=== PATIENT | female | born 1965 | race Caucasian/White ===

== ENCOUNTER 2021-03-11 17:06 | Emergency (ER) | payer OTHER ==
[~2021-03-11] VITALS: Ht 167.6 cm; Wt 59.0 kg
--- NOTE | ~2021-03-11 | EMS ---
[place] [address] EMS Patient Care Report Name: KAREEN HOPKINS Room #: DEP YULIANA Louise#: [id number] Admission: 03/11/21 Attend Phys: Discharge: 03/11/21 Date of : 65 Report #: [id number] THIS REPORT FOR: //name// Report Transmitted: 03/14/2021 10:26 EMS Care Summary [place], [place]/[facility] Incident [id number] @ 03/11/2021 16:32 Incident Location [address] [place] [id number] Patient KAREEN HOPKINS Female, 55 Years 1965 Patient Address [address] [place] [address] Patient History Hypertension (HTN),Alcohol Abuse, Patient Allergies No known allergies, Patient Medications Lisinopril, Chief Complaint Overdose alcohol Disposition Transported No Lights/[place] Dispatch Reason Unknown Problem/Person Down Transported To [facility] Narrative M42 arrived on scene to find the patient sitting upright in her vehicle. [facility] was call for a unresponsive person in a vehicle. Patient said the patient was very difficult to wake up. Patient had a pint of vodka that was half empty. Patient had a bottle of 50 oxycodone and there was only 33 pills in the bottle. [address] [address] EMS Patient Care Report Name: KAREEN HOPKINS Room #: DEP YULIANA Louise#: [id number] Admission: 03/11/21 Attend Phys: Discharge: 03/11/21 Date of : 65 Report #: [id number] Patient's bottle was filled on the 3rd of this month. Patient was lethargic but said she was very drunk and said she had taken her pain pills around 10 this morning. Patient was moved to the cot and patient was secured with seatbelts. With the administration of narcan the patient was more alert. Patient denied chest pain, fever, cough, shortness of breath, or a suicide attempt. En route to the hospital no changes in the patient condition had occurred. M42 arrived on scene of the hospital and patient care was transferred to the RN. Initial Vitals @16:54P: 123,BP: 135/88,CO: 8,SpO2: 94, @16:47P: 111,R: 16,BP: 125/81,Pain: 0/10,GCS: 15,Glucose: 89,SpO2: 95,Revised Trauma: 12, @16:56P: 126,R: 16,BP: 130/86,Pain: 0/10,GCS: 15,SpO2: 94,Revised Trauma: 12, Assessments @16:45MENTAL:SKIN:HEENT:LUNG SOUNDS:ABDOMEN:PELVIS//GI:EXTREMITIES:PULSE:NEURO:@16:56 Impression Overdose - Alcohol Procedures @16:45ALS AssessmentResponse: UnchangedSucceeded@16:51Saline Lock 10cc (20 ga) Site: Antecubital-LeftResponse: UnchangedSucceeded@16:51Narcan - 0.4 Milligrams (mg) - Intravenous (IV)Response: Improved Timeline 16:31,Call Received 16:31,Dispatch Notified 16:32,Dispatched 16:34,En Route 16:43,On Scene 16:45,At Patient 16:45,ALS Assessment,Response: UnchangedSucceeded, 16:47,BP: 125/81 M,PULSE: 111,RR: 16 R,SPO2: 95 Ox,ETCO2: ,B,PAIN: 0,GCS: 15, 16:51,Saline Lock 10cc 20 ga Site: Antecubital-Left,Response: UnchangedSucceeded, 16:51,Narcan - 0.4 Milligrams (mg) - Intravenous (IV),Response: Improved 16:54,BP: 135/88 M,PULSE: 123,RR: R,SPO2: 94 Ox,ETCO2: ,BG: ,PAIN: ,GCS: , 16:55,Depart Scene 16:56,BP: 130/86 M,PULSE: 126,RR: 16 R,SPO2: 94 Ox,ETCO2: ,BG: ,PAIN: 0,GCS: 15, 17:02,At Destination 17:18,Call Closed [facility] [address] [place] [address] EMS Patient Care Report Name: KAREEN HOPKINS Room #: DEP YULIANA Louise#: [id number] Admission: 03/11/21 Attend Phys: Discharge: 03/11/21 Date of : 65 Report #: [id number] Disclaimer v1.1 Copyright 2020 [employer] This EMS Care Summary contains data elements from the applicable legal record (which may be displayed differently). It is designed to provide pertinent information for the following purposes: continuity of care, clinical quality, and state data reporting. The complete legal record is available to ED staff and administrators of the receiving hospital in [employer] Patient Tracker. All data is provided "as is."
[2021-03-11 17:37] LABS: ABSOLUTE NEUTROPHILS 5.4 thou/uL (1.4-8.2); BASOPHILS 1.1 % (0.0-2.0); EOSINOPHILS 4.9 % (0.0-3.0); HEMOGLOBIN 12.5 gm/dL (12.0-15.0); LYMPHOCYTES 21.8 % (24.0-44.0); MCHC 33.8 g/dL (28.0-37.0); MCV 103.5 fL (80.0-100.0); MONOCYTES 5.5 % (1.0-8.0); PLATELET COUNT 371 thou/uL (150-400); POLYS 66.7 % (36.0-66.0); RBC 3.57 mil/uL (4.20-5.00); WBC 8.1 thou/uL (4.0-11.0)
[2021-03-11 17:45] LABS: CALCIUM 8.5 mg/dL (8.5-10.1)
[2021-03-11 18:57] LABS: URINE BILIRUBIN NEGATIVE (Negative); URINE BLOOD NEGATIVE (Negative); URINE CLARITY CLEAR; URINE COLOR YELLOW; URINE GLUCOSE-RANDOM* NEGATIVE (Negative); URINE KETONES NEGATIVE (Negative); URINE LEUKOCYTES-REFLEX TRACE (Negative); URINE NITRITE-REFLEX NEGATIVE (Negative); URINE PROTEIN (DIPSTICK) NEGATIVE (Negative); URINE UROBILINOGEN 0.2 E.U./dl (0.2-1.0)
[2021-03-11 19:03] LABS: AMP/METHAMP Negative (Negative); BARBITURATES Negative (Negative); BENZODIAZEPINES Negative (Negative); COCAINE Negative (Negative); METHADONE Negative (Negative); OPIATES POSITIVE (Negative); PCP Negative (Negative)
[2021-03-11 20:55] VITALS: BP 118/78
== END 2021-03-11 20:48 | disposition home or self-care (01) ==
LOC: ER 17:06
PROVIDERS: Nurse Practitioner
DX: F10.10 Alcohol abuse, uncomplicated (principal); Y90.9 Presence of alcohol in blood, level not specified

== ENCOUNTER 2021-07-17 11:33 | Inpatient (IN) | payer OTHER ==
[~2021-07-17] VITALS: Ht 157.5 cm; Wt 51.3 kg
--- NOTE | ~2021-07-17 | EMS ---
[place] [address] EMS Patient Care Report Name: KAREEN HOPKINS Room #: PRE YULIANA MUrbano#: [id number] Admission: Attend Phys: Discharge: Date of : 65 Report #: [id number] THIS REPORT FOR: //name// Report Transmitted: 07/17/2021 11:23 EMS Care Summary [place], [place]/[facility] Incident [id number] @ 07/17/2021 11:08 Incident Location [address] [place] [address] Patient KAREEN HOPKINS Female, 56 Years 1965 Patient Address [address] [place] [address] Patient History Alcohol Abuse, Patient Allergies No known allergies, Patient Medications Meloxicam, Chief Complaint COVID SYMPTOMS WITH HALLUCINATIONS Disposition Transported No Lights/[place] Dispatch Reason Sick Person Transported To [facility] Narrative RESPONDED TO SICK AT HOME. UPON ARRIVAL P28 CREW REPORTS PT HAS COVID SYMPTOMS AND HALLUCINATIONS FOR THE LAST FEW DAYS. PT IS CALM AND COOPERATIVE. PT ALERT AND ORIENTED X4. PT REPORTS BEING CLEAN OF ALCOHOL FOR THE LAST 3 WEEKS AND NOW EXPERIENCING VISUAL HALLUCINATIONS PERIODICALLY. PT REPORTS [place]ING [place] [address] EMS Patient Care Report Name: KAREEN HOPKINS Room #: PRE YULIANA Louise#: [id number] Admission: Attend Phys: Discharge: Date of : 65 Report #: [id number] WITH LARYNGITIS A COUPLE WEEKS AGO BUT NOW HAS FEVER, RUNNY NOSE, COUGH AND BODY ACHES. PT WALKS TO [facility] AND SEATBELTS APPLIED. VITALS AND 3 LEAD OBTAINED. PT TRANSPORTED TO [facility] WITH NO CHANGES. PT WALKED TO TRIAGE AND SAT IN CHAIR. REPORT GIVEN TO NURSE. Initial Vitals @11:21P: 119,CO: 1, @11:24P: 117,R: 18,BP: 106/70,GCS: 15,SpO2: 95,Revised Trauma: 12, @11:20P: 118,R: 18,BP: 98/61,Pain: 2/10,GCS: 15,Glucose: 163,CO: 0,SpO2: 96,Revised Trauma: 12, Assessments @11:18MENTAL:Time Oriented,Event Oriented,Person Oriented,Place Oriented,Hallucinations,SKIN:Hot,HEENT:Neck/Airway: No Abnormalities,LUNG SOUNDS:General: No Abnormalities,ABDOMEN:General: No Abnormalities,PELVIS//GI:No Abnormalities,EXTREMITIES:Left Arm: No Abnormalities,Right Arm: No Abnormalities,Left Leg: No Abnormalities,Right Leg: No Abnormalities,PULSE:Radial: 2+ Normal,NEURO: Impression COVID-19 - Suspected - no known exposure Procedures @11:18 ALS Assessment Response: UnchangedSucceeded @11:20 3-Lead ECG Response: UnchangedSucceeded Timeline 11:06,Call Received 11:06,Dispatch Notified 11:08,Dispatched 11:10,En Route 11:14,On Scene 11:18,At Patient 11:18,ALS Assessment,Response: UnchangedSucceeded, 11:20,BP: 98/61 M,PULSE: 118,RR: 18 R,SPO2: 96 Ox,ETCO2: ,B,PAIN: 2,GCS: 15, 11:20,3-Lead ECG,Response: UnchangedSucceeded, 11:21,BP: / M,PULSE: 119,RR: R,SPO2: Ox,ETCO2: ,BG: ,PAIN: ,GCS: , 11:23,Depart Scene 11:24,BP: 106/70 M,PULSE: 117,RR: 18 R,SPO2: 95 Ox,ETCO2: ,BG: ,PAIN: ,GCS: 15, 11:30,At Destination 11:45,Call Closed Disclaimer v1.1 Copyright 2021 [employer] [address] [address] EMS Patient Care Report Name: KAREEN HOPKINS Room #: PRE ER M.R.#: [id number] Admission: Attend Phys: Discharge: Date of : 65 Report #: [id number] This EMS Care Summary contains data elements from the applicable legal record (which may be displayed differently). It is designed to provide pertinent information for the following purposes: continuity of care, clinical quality, and state data reporting. The complete legal record is available to ED staff and administrators of the receiving hospital in [employer]'s Patient Tracker. All data is provided "as is."
[2021-07-17 11:40] VITALS: BP 99/60
[2021-07-17 12:08] LABS: HEMATOCRIT 32.3 % (37.0-47.0); HEMOGLOBIN 10.9 gm/dL (12.0-15.0); MCH 37.3 pg (26.0-34.0); MCHC 33.8 g/dL (28.0-37.0); MCV 110.1 fL (80.0-100.0); PLATELET COUNT 247 thou/uL (150-400); RBC 2.94 mil/uL (4.20-5.00); RDW 13.7 % (10.5-14.5); WBC 14.5 thou/uL (4.0-11.0)
[2021-07-17 12:29] LABS: ALBUMIN 3.1 g/dL (3.4-5.0); CALCIUM 9.4 mg/dL (8.5-10.1); CREATININE 1.1 mg/dL (0.6-1.0); TOTAL BILIRUBIN 0.9 mg/dL (0.2-1.0)
[2021-07-17 12:31] LABS: POTASSIUM 2.1 mmol/L (3.5-5.1)
[2021-07-17 13:06] LABS: ANISOCYTOSIS SLIGHT; ATYPICAL LYMPHS 1 %; MACROCYTES 1+
[2021-07-17 15:45] LABS: FOLIC ACID 13.8 ng/mL (8.6-58.9)
[2021-07-18] MEDS ORDERED: LIPITOR 40 MG T40 M1 PO (04:52)
[2021-07-18] MEDS ORDERED: WELLBUTRIN SR150 MG PO (04:53)
[2021-07-18] MEDS ORDERED: ACETAMINOPHEN500 MG PO (04:54)
[2021-07-18 05:21] LABS: HEMATOCRIT 31.3 % (37.0-47.0); HEMOGLOBIN 10.6 gm/dL (12.0-15.0); MCH 38.4 pg (26.0-34.0); MCHC 33.7 g/dL (28.0-37.0); MCV 114.1 fL (80.0-100.0); PLATELET COUNT 242 thou/uL (150-400); RBC 2.75 mil/uL (4.20-5.00); RDW 13.7 % (10.5-14.5)
[2021-07-18 06:21] LABS: URINE BILIRUBIN NEGATIVE (Negative); URINE BLOOD NEGATIVE (Negative); URINE CLARITY CLEAR; URINE COLOR YELLOW; URINE GLUCOSE-RANDOM* 2+ (Negative); URINE KETONES NEGATIVE (Negative); URINE LEUKOCYTES-REFLEX NEGATIVE (Negative); URINE NITRITE-REFLEX NEGATIVE (Negative); URINE PROTEIN (DIPSTICK) NEGATIVE (Negative); URINE SPECIFIC GRAVITY >= 1.030 (1.005-1.035); URINE UROBILINOGEN 0.2 E.U./dl (0.2-1.0)
[2021-07-18 06:30] LABS: CALCIUM 8.6 mg/dL (8.5-10.1); CREATININE 0.9 mg/dL (0.6-1.0)
[2021-07-18 06:32] LABS: POTASSIUM 3.3 mmol/L (3.5-5.1)
--- NOTE | 2021-07-18 08:08 | EKG ---
[address] [place] [address] ELECTROCARDIOGRAM REPORT Name: KAREEN HOPKINS Room #: 170-10 ADM IN M.R.#: [id number] Admission: 07/17/21 Attend Phys: Beto Anton MD Discharge: Date of : 65 Report #: [id number] [facility] ED Test Date: 2021-07-17 Test Time: 12:57:30 Pat Name: KAREEN HOPKINS Department: Room: 170 Gender: F Hvac Lead: HERMILA : 1965 Requested By: Joaquin Mckeon Order Number: [id number] MD: [place] Burnette Measurements Intervals [place] Rate: 90 P: 69 RI: 131 QRS: 68 QRSD: 80 T: 69 QT: 496 QTc: 607 Interpretive Statements Sinus rhythm Nonspecific ST segment abnormality Prolonged QT interval No previous ECG available for comparison Electronically Signed On 07-18-2021 8:08:26 MARKETING CAMPAIGN ANALYST by [place] Burnette [email or web address] <ELECTRONICALLY SIGNED> By: [place] Burnette MD, [facility] 07/18/21 [id number] [place] Burnette MD, FACC /EPI
[2021-07-18 08:28] VITALS: BP 114/75
[2021-07-18 08:50] VITALS: BP 114/75
[2021-07-18 11:05] LABS: ABSOLUTE NEUTROPHILS 9.2 thou/uL (1.4-8.2); ANISOCYTOSIS 1+; ATYPICAL LYMPHS 1 %; MACROCYTES 2+
[2021-07-18 11:06] VITALS: BP 118/80
[2021-07-18 20:59] VITALS: BP 129/84
[2021-07-18 23:45] VITALS: BP 112/53
[2021-07-19 03:19] LABS: HEMATOCRIT 29.7 % (37.0-47.0); HEMOGLOBIN 9.8 gm/dL (12.0-15.0); MCH 38.2 pg (26.0-34.0); MCHC 32.8 g/dL (28.0-37.0); MCV 116.3 fL (80.0-100.0); RBC 2.56 mil/uL (4.20-5.00); RDW 14.1 % (10.5-14.5); WBC 9.9 thou/uL (4.0-11.0)
[2021-07-19 03:27] LABS: CALCIUM 8.7 mg/dL (8.5-10.1); CREATININE 0.8 mg/dL (0.6-1.0); MAGNESIUM 2.1 mg/dL (1.8-2.4); POTASSIUM 4.2 mmol/L (3.5-5.1)
[2021-07-19 04:50] VITALS: BP 117/65
[2021-07-19 07:08] LABS: GLYCOHEMOGLOBIN (HGB A1C) 4.7 % (4.8-5.6)
[2021-07-19 08:55] VITALS: BP 112/95
--- NOTE | 2021-07-19 13:37 | NUR ---
PATIENT ADMITTED FOR PNEUMONIA. CM REVIEWED PT CHART AND DISCUSSED WITH CARE TEAM. CM MET WITH PT THIS DAY. CM ROLE INTRODUCED. PT REPORTS SHE LIVES AT HOME WITH HER SISTER HAYDEN DENNEY. PHONE # [phone]. SHE REPORTS SHE DOES NOT USE [employer] DEVICES. 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 SHE REPORT NO OUTSIDE STAIRS. THERE ARE STAIRS INSIDE THE HOME BUT SHE REPORTS SHE LIVES ON FIRST FLO[address] AND DOES NOT USE THEM. REPORTS NO NEEDS ON DC AND GOAL IS TO RETURN HOME AND GO BACK TO WORK. NO FURTHER CM INTERVENTIONS AT THIS TIME.
[2021-07-19 16:00] VITALS: BP 109/57
--- NOTE | 2021-07-19 18:17 | NUR ---
ASSESSMENT CHARTED . MEDS PER ESTHER - SALOMON DIET AND FLUIDS. NO CO'S OF PAIN OR NAUSEA. UP AD MERI IN ROOM. PT WITH REQUEST FOR EXTRA BREATHING TREATMENT - GIVEN. PT WITH STRONG COUGH , SOB WITH COUGH. NO CO'S AT THE PRESENT TIME.
[2021-07-19 20:12] VITALS: BP 112/65
[2021-07-20 06:10] VITALS: BP 129/66
--- NOTE | 2021-07-20 07:20 | NUR ---
PT W/O C/O PAIN THRU THE NIGHT UP ADLIB TO BR, VSS, REMAINS SR PER MONITOR, HOPING TO GO HOME THIS AM, REPORT GIVEN TO NEXT SHIF TO CON'T PPOC
[2021-07-20 09:43] VITALS: BP 131/82
[2021-07-20] MEDS ORDERED: KEFLEX250 MG PO (10:19)
[2021-07-20] MEDS ORDERED: PREDNISONE10 MG PO (10:21)
[2021-07-20 11:01] VITALS: BP 131/82
--- NOTE | 2021-07-20 11:46 | NUR ---
ASSESSMENT CHARTED - MEDS PER ESTHER LATIF DIET AND FLUIDS. CO'S OF HEADAHCE GIVEN TYLENOL WITH RELIEF. NO CO'S OF NAUSEA. UP AD MERI IN ROOM. PT HOME THIS AM - IINSTRUCTION RE HOME MEDS/ CARE AND FOLLOW UP GIVEN TO PATIENT - STATED UNDERSTANDING OF INSTRUCTION GIVEN. LEFT UNIT VIA WHEEL CHAIR HOME VIA PVT VEHICLE - NO CO'S AT TIME OF D/C.
== END 2021-07-20 11:50 | disposition home or self-care (01) | DRG 871 ==
LOC: ER 11:33 → 2N 14:16 → EROBS 14:16 → 2N 07-18 08:59
PROVIDERS: Emergency Medicine; Internal Medicine; Nurse Practitioner; ADMIT Internal Medicine; ATTEND Internal Medicine
DX: A41.9 Sepsis, unspecified organism (principal); J18.9 Pneumonia, unspecified organism; R44.3 Hallucinations, unspecified; J44.1 Chronic obstructive pulmonary disease with (acute) exacerbation; E78.5 Hyperlipidemia, unspecified; J44.0 Chronic obstructive pulmonary disease with (acute) lower respiratory infection; E87.6 Hypokalemia; F17.210 Nicotine dependence, cigarettes, uncomplicated; E83.42 Hypomagnesemia; Z20.822 Contact with and (suspected) exposure to COVID-19; Z23 Encounter for immunization
CPT/HCPCS: 10081